=== PATIENT | female | born 1980 | race Caucasian/White ===

== ENCOUNTER 2020-02-24 16:53 | Outpatient (REF) | payer MEDICAID, SELFPAY ==
[2020-02-24 19:20] LABS: Abs Immature Grans 0.01 k/cumm (0.0-0.09); Absolute Basophil Count 0.03 k/cumm (0.0-0.2); Absolute Eosinophil Count 0.23 k/cumm (0.0-0.7); Absolute Lymphocyte Count 2.97 k/cumm (1.2-3.4); Absolute Monocyte Count 0.54 k/cumm (0.11-0.7); Absolute Neutrophil Count 4.46 k/cumm (1.2-6.7); Basophils % 0.4; Eosinophils % 2.8; HCT 37.3 % (36.0-46.0); HGB 12.5 g/dL (12.0-15.5); Immature Grans % 0.1 %; Mean Corp. HGB Concentration 33.5 g/dL (32.0-36.0); Mean Corpuscular Hemoglobin 27.7 pg (27.0-33.0); Mean Corpuscular Volume 82.7 fL (80-95); Mean Platelet Volume 11.4 fL (8.0-11.0); Monocytes % 6.6; Neutrophils % 54.1; Platelet Count 340 x1000/uL (130-400); RBC 4.51 m/cumm (4.00-5.20); RBC Distribution Width 14.1 % (11.7-14.6); White Blood Cell Count 8.24 k/cumm (4.4-10.8)
[2020-02-24 19:39] LABS: ALT 26 U/L (14-59); AST 16 U/L (15-37); Alkaline Phosphatase 76 U/L (46-116); Anion Gap 11.5 mmol/L (3-11); BUN 9 mg/dL (7-18); Bilirubin, Total 0.2 mg/dL (0.2-1.0); CO2 21.5 mmol/L (21.0-32.0); CREATININE 0.72 mg/dL (0.55-1.02); Calcium 8.6 mg/dL (8.5-10.1); Chloride 106 mmol/L (98-107); FREE T4 0.97 ng/dL (0.76-1.46); Glucose 110 mg/dL (74-106); Potassium 3.7 mmol/L (3.5-5.1); Sodium 139 mmol/L (136-145); TSH 2.18 uIU/mL (0.36-3.74); Total Protein 7.3 g/dL (6.4-8.2)
[2020-02-24 19:52] LABS: Vitamin D 25 Total 17.3 ng/ml (30-100)
[2020-02-25 17:00] LABS: T3, Total 129 ng/dL (97-169)
== END 2020-02-24 17:13 ==
LOC: NCHCN 16:53
PROVIDERS: PCP Physician Assistant; Visit Provider Physician Assistant
DX: E03.9 Hypothyroidism, unspecified (principal); E04.9 Nontoxic goiter, unspecified; G93.2 Benign intracranial hypertension; E55.9 Vitamin D deficiency, unspecified
CPT/HCPCS: 80053; 82306; 84439; 84443; 84480; 85025

== ENCOUNTER 2020-08-07 18:07 | Outpatient (REF) | payer MEDICAID, SELFPAY ==
[2020-08-08 21:31] LABS: COVID-19 RT-PCR Result NEGATIVE (Negative)
== END 2020-08-07 18:27 ==
LOC: NCHCN 18:07
PROVIDERS: PCP Physician Assistant; Visit Provider Physician Assistant
DX: Z20.828 Contact with and (suspected) exposure to other viral communicable diseases (principal)
CPT/HCPCS: U0003

== ENCOUNTER 2020-09-05 15:24 | Outpatient (REF) | payer MEDICAID, SELFPAY ==
[2020-09-05 15:52] LABS: ALT 21 U/L (14-59); AST 12 U/L (15-37); Albumin 3.8 g/dL (3.4-5.0); Alkaline Phosphatase 78 U/L (46-116); Anion Gap 9.7 mmol/L (3-11); BUN 8 mg/dL (7-18); Bilirubin, Total 0.3 mg/dL (0.2-1.0); CO2 27.3 mmol/L (21.0-32.0); CREATININE 0.6 mg/dL (0.55-1.02); Calcium 8.8 mg/dL (8.5-10.1); Chloride 104 mmol/L (98-107); FREE T4 0.78 ng/dL (0.76-1.46); Glucose 100 mg/dL (74-106); Potassium 3.4 mmol/L (3.5-5.1); Sodium 141 mmol/L (136-145); TSH 3.74 uIU/mL (0.36-3.74); Total Protein 6.9 g/dL (6.4-8.2)
[2020-09-06 17:16] LABS: T3, Total 114 ng/dL (97-169)
[2020-09-07 04:26] LABS: Vitamin D 25 Total 19.1 ng/ml (30-100)
== END 2020-09-05 15:25 | disposition home or self-care (01) ==
LOC: NCHCN 15:24
PROVIDERS: PCP Physician Assistant; Visit Provider Physician Assistant
DX: G93.2 Benign intracranial hypertension (principal); E55.9 Vitamin D deficiency, unspecified; E03.9 Hypothyroidism, unspecified
CPT/HCPCS: 80053; 82306; 84439; 84443; 84480

== ENCOUNTER 2021-03-15 13:45 | Outpatient (REF) | payer MEDICAID, SELFPAY | END 2021-03-15 13:46 | disposition home or self-care (01) | LOC: NCHCN 13:45 | PROVIDERS: PCP Physician Assistant; Visit Provider Physician Assistant | DX: N39.0 Urinary tract infection, site not specified (principal) | CPT/HCPCS: 87086 ==

== ENCOUNTER 2021-04-25 16:24 | Outpatient (REF) | payer MEDICAID, SELFPAY ==
[2021-04-27 10:56] LABS: COVID-19 RT-PCR UVMMC Result Negative (Negative)
== END 2021-04-25 16:25 | disposition home or self-care (01) ==
LOC: NCHCN 16:24
PROVIDERS: PCP Physician Assistant; Visit Provider Physician Assistant
DX: Z20.822 Contact with and (suspected) exposure to COVID-19 (principal); R05 Cough
CPT/HCPCS: U0003

== ENCOUNTER 2022-01-16 11:14 | Outpatient (REF) | payer MEDICAID, SELFPAY ==
[2022-01-16 21:29] LABS: Anion Gap 10.9 mmol/L (3-11); BUN 13 mg/dL (7-18); CO2 19.1 mmol/L (21.0-32.0); CREATININE 0.8 mg/dL (0.55-1.02); Chloride 110 mmol/L (98-107); Glucose 93 mg/dL (74-106); Potassium 3.9 mmol/L (3.5-5.1); Sodium 140 mmol/L (136-145)
[2022-01-17 17:23] LABS: TSH (W/Ref FT4) 0.82 uIU/mL (0.36-3.74)
[2022-01-17 17:36] LABS: Vitamin D 25 Total 21.1 ng/mL (30-100)
[2022-01-18 18:14] LABS: T3,Free 3.1 pg/mL (2.8-5.3)
== END 2022-01-16 11:15 | disposition home or self-care (01) ==
LOC: NCHCN 11:14
PROVIDERS: PCP Physician Assistant; Visit Provider Physician Assistant
DX: E55.9 Vitamin D deficiency, unspecified (principal); E06.3 Autoimmune thyroiditis; G93.2 Benign intracranial hypertension
CPT/HCPCS: 80048; 82306; 84443; 84481

== ENCOUNTER 2022-03-04 04:29 | Outpatient (RCR) | payer MEDICAID, SELFPAY ==
--- NOTE | 2022-03-04 08:15 | HOLTER_ITS ---
APPROVED REPORT Conclusion This is a 48-hour Holter monitor Predominant rhythm was sinus with an average heart rate of 88. Minimum was 61, maximum 148 There were very rare isolated atrial and ventricular premature contractions There was no atrial fibrillation, no supraventricular tachycardia, no high-grade AV block, no pauses greater than 3 seconds There were no apparent patient symptoms
== END 2022-04-03 23:59 | disposition home or self-care (01) ==
LOC: RT 04:29
PROVIDERS: PCP Physician Assistant; Visit Provider Physician Assistant
DX: R00.0 Tachycardia, unspecified (principal)
CPT/HCPCS: 93225; 93226

== ENCOUNTER 2022-05-28 08:11 | Outpatient (CLI) | payer MEDICAID, SELFPAY ==
--- NOTE | 2022-05-28 08:00 | RT.EKG_ITS ---
APPROVED REPORT Exam: Resting ECG Reason for Exam: palpitations Patient Location: O HR:87 bpm ECG Measurements Heart Rate 87 AXIS DC 153 P 18 QRSd 103 QRS -20 QT 368 T 24 QTc 443 Conclusion Sinus rhythm...normal P axis, V-rate 50- 99 RSR' in V1 or V2, probably normal variant...small R' only
== END 2022-05-28 08:12 | disposition home or self-care (01) ==
LOC: DI.CARD 08:12
PROVIDERS: PCP Physician Assistant; Visit Provider Internal Medicine Cardiovascular Disease
DX: R00.2 Palpitations (principal)
CPT/HCPCS: 93010

== ENCOUNTER 2022-12-02 15:57 | Outpatient (REF) | payer MEDICAID, SELFPAY ==
[2022-12-02 20:43] LABS: Hemoglobin A1C 5.6 % (<5.7)
[2022-12-02 21:34] LABS: Ferritin 29 ng/mL (8-252)
[2022-12-02 22:17] LABS: Iron 40 ug/dL (50-170); Total Iron Binding Capacity 371 ug/dL (250-450); Transferrin Sat 11 % (15-50)
== END 2022-12-02 15:58 | disposition home or self-care (01) ==
LOC: NCHCN 15:57
PROVIDERS: PCP Physician Assistant; Visit Provider Physician Assistant
DX: E61.1 Iron deficiency (principal); R79.89 Other specified abnormal findings of blood chemistry
CPT/HCPCS: 82728; 83036; 83540; 83550

== ENCOUNTER 2023-04-01 17:59 | Outpatient (REF) | payer MEDICAID, SELFPAY ==
[2023-04-01 18:50] LABS: HCT 38.7 % (36.0-46.0); HGB 12.8 g/dL (11.2-15.7); MCH 29.4 pg (27.0-33.0); MCHC 33.1 % (32.0-36.0); MCV 89 fL (80-95); MPV 11.5 fL (8.0-11.0); Platelet Count 340 10^3/uL (130-400); RBC 4.35 10^6/uL (3.93-5.22); RDW 12.9 % (11.7-14.6); RDW-SD 41.8 fL; WBC 9.31 10^3/uL (4.4-10.8)
[2023-04-01 19:34] LABS: Ferritin 76 ng/mL (8-252)
[2023-04-01 20:51] LABS: Iron 58 ug/dL (50-170); Total Iron Binding Capacity 330 ug/dL (250-450); Transferrin Sat 18 % (15-50)
== END 2023-04-01 18:00 | disposition home or self-care (01) ==
LOC: NCHCN 17:59
PROVIDERS: PCP Physician Assistant; Visit Provider Physician Assistant
DX: E61.1 Iron deficiency (principal); N92.6 Irregular menstruation, unspecified
CPT/HCPCS: 85027; 82728; 83001; 83540; 83550

== ENCOUNTER 2024-04-30 10:36 | Outpatient (REF) | payer MEDICAID, SELFPAY ==
[2024-04-30 19:16] LABS: ALT 22 U/L (14-59); AST 14 U/L (15-37); Alkaline Phosphatase 78 U/L (46-116); Anion Gap 8.3 mmol/L (3-11); BUN 9 mg/dL (7-18); Bilirubin, Total 0.38 mg/dL (0.2-1.0); CO2 24.7 mmol/L (21.0-32.0); CREATININE 0.6 mg/dL (0.55-1.02); Calcium 9.1 mg/dL (8.5-10.1); Chloride 106 mmol/L (98-107); Estimated GFR 112.04 (mL/min/1.73m2); Glucose 120 mg/dL (74-106); Potassium 4.1 mmol/L (3.5-5.1); Sodium 139 mmol/L (136-145); Total Protein 7.6 g/dL (6.4-8.2)
== END 2024-04-30 10:37 | disposition home or self-care (01) ==
LOC: NCHCN 10:36
PROVIDERS: PCP Physician Assistant; Visit Provider Physician Assistant
DX: I10 Essential (primary) hypertension (principal)
CPT/HCPCS: 80053

== ENCOUNTER 2024-07-30 11:30 | Outpatient (REF) | payer MEDICAID, SELFPAY ==
[2024-07-30 19:25] LABS: Abs Immature Grans 0.02 10^3/uL (0.0-0.06); Absolute Basophil Count 0.07 10^3/uL (0.0-0.2); Absolute Lymphocyte Count 2.19 10^3/uL (1.2-3.4); Absolute Monocyte Count 0.49 10^3/uL (0.1-0.8); Eosinophils % 2.8 %; HCT 39.3 % (36.0-46.0); HGB 13.3 g/dL (11.2-15.7); Immature Grans % 0.3 %; Lymphocytes % 30.1 %; MCH 30.1 pg (27.0-33.0); MCHC 33.8 % (32.0-36.0); MCV 89 fL (80-95); MPV 11.7 fL (8.0-11.0); Monocytes % 6.7 %; Neutrophils % 59.1 %; Platelet Count 267 10^3/uL (130-400); RBC 4.42 10^6/uL (3.93-5.22); RDW-SD 42.3 fL; WBC 7.27 10^3/uL (4.4-10.8)
[2024-07-30 19:47] LABS: Ferritin 94 ng/mL (8-252); Vitamin D 25 Total 19.1 ng/mL (30-100)
== END 2024-07-30 11:31 | disposition home or self-care (01) ==
LOC: NCHCN 11:30
PROVIDERS: PCP Physician Assistant; Visit Provider Physician Assistant
DX: E61.1 Iron deficiency (principal); E55.9 Vitamin D deficiency, unspecified
CPT/HCPCS: 82306; 82728; 85025

== ENCOUNTER 2024-10-28 22:02 | Outpatient (REF) | payer MEDICAID, SELFPAY ==
--- NOTE | 2024-10-28 08:40 | PAPFT_PTH ---
PATIENT: Barbie Ramírez LOC: [facility] U#:[id number] AGE/SX: 44/F ROOM: RE10/28/[address]: Gala Farr : 1980 BED: DIS: 10/28/2024 SPEC #: [id number] RECD: 10/29/24 13:07 STATUS: GRACIELA REMark #: [id number] MARK: 10/28/24 08:[address]: Gala Farr DEPT: [facility] Cytology RECD BY: Brandy Childress Tissues: 1 - CX/ENDOCX FOR PAP SMEARS Procedures: PAP THIN PREP/UVM Screening HPV DNA PROBE Comments: [id number] (CHLAMYDIA/GC)
[2024-10-28 19:37] LABS: Iron 61 ug/dL (50-170); Total Iron Binding Capacity 375 ug/dL (250-450); Transferrin Sat 16 % (15-50)
[2024-10-28 20:07] LABS: ALT 29 U/L (14-59); AST 16 U/L (15-37); Albumin 3.9 g/dL (3.4-5.0); Alkaline Phosphatase 69 U/L (46-116); Anion Gap 8.1 mmol/L (3-11); BUN 12 mg/dL (7-18); Bilirubin, Total 0.3 mg/dL (0.2-1.0); CO2 25.9 mmol/L (21.0-32.0); CREATININE 0.6 mg/dL (0.55-1.02); Calcium 9.1 mg/dL (8.5-10.1); Chloride 107 mmol/L (98-107); Estimated GFR 112.04 (mL/min/1.73m2); Ferritin 36 ng/mL (8-252); Glucose 108 mg/dL (74-106); Potassium 4.4 mmol/L (3.5-5.1); Sodium 141 mmol/L (136-145); TSH 15.83 uIU/mL (0.36-3.74); Total Protein 6.9 g/dL (6.4-8.2); Vitamin D 25 Total 13 ng/mL (30-100)
[2024-10-28 21:04] LABS: FREE T4 0.69 ng/dL (0.76-1.46)
[2024-10-29 22:36] LABS: T3, Total 131 ng/dL (97-169)
[2024-10-30 16:51] LABS: Bacterial Vaginosis (BV) Positive (Negative); Candida glabrata Negative (Negative); Candida species group Negative (Negative); Trichomonas vaginalis Negative (Negative)
[2024-10-31 09:43] LABS: HIV-1/2 Ag & Ab Screen Negative (Negative)
[2024-11-01 11:28] LABS: Hepatitis C Ab w Rflx HCV PCR Negative (Negative)
[2024-11-01 13:07] LABS: Chlamydia Result Negative (Negative); GC Result Negative (Negative)
== END 2024-10-28 22:03 | disposition home or self-care (01) ==
LOC: LBN 22:02
PROVIDERS: PCP Physician Assistant; Visit Provider Physician Assistant
DX: Z12.4 Encounter for screening for malignant neoplasm of cervix (principal); N76.0 Acute vaginitis; Z01.419 Encounter for gynecological examination (general) (routine) without abnormal findings; E55.9 Vitamin D deficiency, unspecified; E03.9 Hypothyroidism, unspecified; I10 Essential (primary) hypertension; E61.1 Iron deficiency; Z11.4 Encounter for screening for human immunodeficiency virus [HIV]; Z11.59 Encounter for screening for other viral diseases; R10.2 Pelvic and perineal pain
CPT/HCPCS: 80053; 81513; 82306; 86803; 87389; 87481; 87491; 87591; 87661; 88142; 82728; 83540; 83550; 84439; 84443; 84480; 87624

== ENCOUNTER 2024-11-29 09:58 | Outpatient (REF) | payer MEDICAID, SELFPAY ==
[2024-11-29 19:58] LABS: TSH 4.05 uIU/mL (0.36-3.74); Vitamin D 25 Total 13 ng/mL (30-100)
[2024-11-29 20:18] LABS: FREE T4 0.86 ng/dL (0.76-1.46)
[2024-11-30 18:32] LABS: Parathyroid Hormone,Intact 50 pg/mL (19-88)
== END 2024-11-29 09:59 | disposition home or self-care (01) ==
LOC: NCHCN 09:58
PROVIDERS: PCP Physician Assistant; Visit Provider Physician Assistant
DX: E55.9 Vitamin D deficiency, unspecified (principal); E03.9 Hypothyroidism, unspecified
CPT/HCPCS: 82306; 83970; 84439; 84443

== ENCOUNTER 2024-12-21 18:26 | Outpatient (REF) | payer MEDICAID, SELFPAY ==
[2024-12-21 19:29] LABS: Abs Immature Grans 0.02 10^3/uL (0.0-0.06); Absolute Basophil Count 0.06 10^3/uL (0.0-0.2); Absolute Eosinophil Count 0.24 10^3/uL (0.0-0.7); Absolute Lymphocyte Count 2.74 10^3/uL (1.2-3.4); Absolute Monocyte Count 0.59 10^3/uL (0.1-0.8); Absolute Neutrophil Count 4.69 10^3/uL (1.2-6.7); Basophils % 0.7 %; Eosinophils % 2.9 %; HCT 39.2 % (36.0-46.0); HGB 12.9 g/dL (11.2-15.7); Immature Grans % 0.2 %; Lymphocytes % 32.9 %; MCH 28.7 pg (27.0-33.0); MCHC 32.9 % (32.0-36.0); MCV 87 fL (80-95); MPV 11.2 fL (8.0-11.0); Monocytes % 7.1 %; Neutrophils % 56.2 %; Platelet Count 321 10^3/uL (130-400); RBC 4.49 10^6/uL (3.93-5.22); RDW 12.6 % (11.7-14.6); RDW-SD 40.1 fL; WBC 8.34 10^3/uL (4.4-10.8)
[2024-12-21 19:53] LABS: Ferritin 22 ng/mL (8-252)
== END 2024-12-21 18:27 | disposition home or self-care (01) ==
LOC: NCHCN 18:26
PROVIDERS: PCP Physician Assistant; Visit Provider Physician Assistant
DX: E61.1 Iron deficiency (principal)
CPT/HCPCS: 82728; 85025

== ENCOUNTER 2025-01-25 16:31 | Outpatient (REF) | payer MEDICAID, SELFPAY ==
[2025-01-25 18:47] LABS: Abs Immature Grans 0.02 10^3/uL (0.0-0.06); Absolute Basophil Count 0.07 10^3/uL (0.0-0.2); Absolute Eosinophil Count 0.23 10^3/uL (0.0-0.7); Absolute Lymphocyte Count 2.47 10^3/uL (1.2-3.4); Absolute Monocyte Count 0.52 10^3/uL (0.1-0.8); Absolute Neutrophil Count 4.86 10^3/uL (1.2-6.7); Basophils % 0.9 %; Eosinophils % 2.8 %; HCT 36.1 % (36.0-46.0); HGB 11.6 g/dL (11.2-15.7); Immature Grans % 0.2 %; Lymphocytes % 30.2 %; MCH 27.8 pg (27.0-33.0); MCHC 32.1 % (32.0-36.0); MCV 86 fL (80-95); MPV 11.2 fL (8.0-11.0); Monocytes % 6.4 %; Neutrophils % 59.5 %; Platelet Count 300 10^3/uL (130-400); RBC 4.18 10^6/uL (3.93-5.22); RDW 12.9 % (11.7-14.6); RDW-SD 40.3 fL; WBC 8.17 10^3/uL (4.4-10.8)
[2025-01-25 19:07] LABS: Iron 42 ug/dL (50-170); Total Iron Binding Capacity 449 ug/dL (250-450); Transferrin Sat 9 % (15-50)
[2025-01-25 19:27] LABS: Ferritin 12 ng/mL (8-252); TSH (W/Ref FT4) 9.95 uIU/mL (0.36-3.74); Vitamin D 25 Total 10 ng/mL (30-100)
[2025-01-25 19:45] LABS: FREE T4 0.77 ng/dL (0.76-1.46)
== END 2025-01-25 16:32 | disposition home or self-care (01) ==
LOC: NCHCN 16:31
PROVIDERS: PCP Physician Assistant; Visit Provider Physician Assistant
DX: E61.1 Iron deficiency (principal); E03.9 Hypothyroidism, unspecified; E55.9 Vitamin D deficiency, unspecified
CPT/HCPCS: 82306; 82728; 83540; 83550; 84439; 84443; 85025

== ENCOUNTER 2025-04-28 17:18 | Outpatient (REF) | payer MEDICAID, SELFPAY ==
[2025-04-28 20:08] LABS: Iron 61 ug/dL (50-170); Total Iron Binding Capacity 407 ug/dL (250-450); Transferrin Sat 15 % (15-50)
[2025-04-28 20:33] LABS: Ferritin 50 ng/mL (8-252); Vitamin D 25 Total 11 ng/mL (30-100)
== END 2025-04-28 17:19 | disposition home or self-care (01) ==
LOC: NCHCN 17:18
PROVIDERS: PCP Physician Assistant; Visit Provider Physician Assistant
DX: E61.1 Iron deficiency (principal); E55.9 Vitamin D deficiency, unspecified
CPT/HCPCS: 82306; 82728; 83540; 83550

== ENCOUNTER 2025-06-22 06:46 | Emergency (ER) | payer MEDICAID, SELFPAY ==
[2025-06-22 06:47] VITALS: BP 159/90; PULSE 98; RESP 16; TEMP 36.7; O2SAT 99
[2025-06-22 06:50] VITALS: BP 159/90; PULSE 98; RESP 16; TEMP 36.7; O2SAT 99
--- NOTE | 2025-06-22 07:31 | W.ED.GENAD ---
Discharge Plan Disposition Patient Disposition: Home Condition: Good Discharge Details Clinical Impression: Acute sore throat Primary Care Provider: Gala Farr ED Provider: Elder Reis Home Meds and New Rx's Prescriptions: No Action iron infusion IV [id number] rosuvastatin 10 mg tablet 10 mg PO DAILY mecobalamin (vitamin B12) 1,000 mcg tablet,chewable 1,000 mcg PO DAILY levothyroxine 88 mcg capsule 88 mcg PO DAILY tizanidine 4 mg capsule 4 mg PO QHS PRN aspirin 81 mg capsule 81 mg PO DAILY ibuprofen 600 mg tablet 600 mg PO BID PRN fluticasone propionate [Flovent HFA] 220 mcg/actuation HFA aerosol inhaler 2 puff inhalation BID diclofenac sodium [Arthritis Pain (diclofenac)] 1 % gel 2 g topical QID PRN Rx Instructions: apply to single elbow, wrist or hand; for hand includes palm/fingers/back of hand albuterol sulfate [Ventolin HFA] 90 mcg/actuation HFA aerosol inhaler 2 puff inhalation Q6H PRN lorazepam 1 mg tablet 1 mg PO BID PRN levocetirizine [Allergy Relief (levocetirizin)] 5 mg tablet 5 mg PO DAILY cholecalciferol (vitamin D3) 50 mcg (2,000 unit) capsule 50 mcg PO DAILY rimegepant 75 mg tablet,disintegrating 75 mg PO ONCE PRN Rx Instructions: as a single dose dexlansoprazole [Dexilant] 60 mg capsule,biphase delayed releas 60 mg PO DAILY ergocalciferol (vitamin D2) 1,250 mcg (50,000 unit) capsule 1,250 mcg PO Q2W Discharge Instructions Instructions: Sore throat in adults Additional Instructions: At this time the test looking for strep throat has returned negative x 2. We have sent these for culture though, and we will contact you if the culture results returned positive. In the meantime the assumption with us be that this would be a viral etiology. Please continue to take Tylenol and Motrin [id number] as needed for pain and inflammation. Please gargle salt water 2-3 times per day, and take 2 tablespoons of honey every 4-6 hours to help with the sore throat. If you notice any worsening of your symptoms, or any new symptoms such as vomiting, diarrhea, fever, chills, shortness of breath, chest pain, numbness, weakness, or fainting , please return immediately to the emergency department for reevaluation. Please follow up with your primary care provider as soon as possible for reassessment and reevaluation. As always, it was a pleasure participating in your medical care today. Stand Alone Forms: Portal Information Referrals: Gala Farr [Primary Care Provider, Medicine] [facility] General Date/Time Provider Initiated Documentation: 06/22/25 07:08. HPI Narrative: This is a 45-year-old female with no significant past medical history who presents today for sore throat. Patient states that about 4 to 5 days ago she developed a sore throat, she had fever for about 24 to 48 hours, the fever has resolved, but she still has a persistent sore throat. Slightly improved compared to prior but otherwise still persistent. She noticed some white splotches over the last 24 hours, and came in for further assessment. She does admit to sick contacts with similar symptomatology, 1 of which was diagnosed with strep throat. She denies any history of STDs, she is in a monogamous relationship, she does admit to performing oral sex with her partner but also states that he has no lesions, history of herpes, and in fact has been tested recently all of which was negative. She denies any other complaints at this time. She has been taking NSAIDs which has improved her symptoms some, as well as some salt water gargles. Related Data Home Medications Medication Instructions Recorded Confirmed albuterol sulfate 90 mcg/actuation 2 puff inhalation Q6H PRN 02/26/22 06/22/25 aerosol inhaler (Ventolin HFA) aspirin 81 mg capsule 81 mg PO DAILY 02/26/22 06/22/25 cholecalciferol (vitamin D3) 50 50 mcg PO DAILY 02/26/22 06/22/25 mcg (2,000 unit) capsule diclofenac sodium 1 % topical gel 2 g topical QID PRN 02/26/22 06/22/25 (Arthritis Pain (diclofenac)) fluticasone propionate 220 2 puff inhalation BID 02/26/22 06/22/25 mcg/actuation HFA aerosol inhaler (Flovent HFA) ibuprofen 600 mg tablet 600 mg PO BID PRN 02/26/22 06/22/25 levocetirizine 5 mg tablet 5 mg PO DAILY 02/26/22 06/22/25 (Allergy Relief (levocetirizine)) levothyroxine 88 mcg capsule 88 mcg PO DAILY 02/26/22 06/22/25 lorazepam 1 mg tablet 1 mg PO BID PRN 02/26/22 06/22/25 tizanidine 4 mg capsule 4 mg PO QHS PRN 02/26/22 06/22/25 dexlansoprazole 60 mg 60 mg PO DAILY 09/17/22 06/22/25 capsule,biphase delayed release (Dexilant) rimegepant 75 mg disintegrating 75 mg PO ONCE PRN 09/17/22 06/22/25 tablet ergocalciferol (vitamin D2) 1,250 1,250 mcg PO Q2W 05/27/23 06/22/25 mcg (50,000 unit) capsule iron infusion IV [id number] 05/27/23 mecobalamin (vitamin B12) 1,000 1,000 mcg PO DAILY 05/27/23 06/22/25 mcg chewable tablet rosuvastatin 10 mg tablet 10 mg PO DAILY 05/27/23 06/22/25 Allergies Allergy/AdvReac Type Severity Reaction Status Date / Time hydroxyzine Allergy Intermediate Skin Rash Verified 06/22/25 06:53 gabapentin Allergy Mild Other (See Verified 06/22/25 06:53 Comment) cetirizine AdvReac Mild Unknown Verified 06/22/25 06:53 duloxetine (From Cymbalta) AdvReac Mild Other (See Verified 06/22/25 06:53 Comment) fexofenadine (From Margarita) AdvReac Mild Other (See Verified 06/22/25 06:53 Comment) loratadine (From Claritin) AdvReac Mild Other (See Verified 06/22/25 06:53 Comment) General Stated Complaint: Sorethroat BECKY: 4 Exam Narrative Exam Narrative: 1.Const: Well-nourished, Well-developed, appearing stated age 2.Eyes: PERRL, no conjunctival injection, and symmetrical lids. 3.ENT: Atraumatic external nose and ears. Moist MM. Neck: Symmetric, trachea midline, No thyromegaly. Minimal erythema in the posterior oropharynx. Mild white exudate noted on the right tonsil and a very small amount noted on the left tonsil. No tonsillar enlargement though. No signs of peritonsillar abscess. Uvula midline. No signs of compromise of the posterior oropharynx. No difficulty breathing or controlling secretions. No evidence of Ludewig's angina. 4.CVS: +S1/S2, Peripheral pulses 2+ and equal in all extremities. Brisk capillary refill in all extremities. 5.RESP: Unlabored respiratory effort. Clear to auscultation bilaterally. No wheezes rales or rhonchi 6.GI: Soft, Nontender/Nondistended, No hepatosplenomegaly. No guarding or rebound. 7.MSK: Normocephalic/Atraumatic, Extremities w/o deformity or ttp No cyanosis or clubbing, Normal movement of all extremities 8.Skin: Warm, Dry. No rashes or lesions. 9.Neuro: financial agent II-XII grossly intact. Sensation grossly intact, no focal neurologic deficits. 10.Psych: (AAO) x3. Appropriate mood and affect Course Vital Signs Vital signs: Vital Signs Temperature 36.7 C 06/22/25 06:47 Pulse 98 H 06/22/25 06:47 Respiratory Rate 16 06/22/25 06:47 Blood Pressure 159/90 H 06/22/25 06:47 Pulse Oximetry 99 06/22/25 06:47 Temperature 36.7 C 06/22/25 06:50 Temperature Source Temporal Artery Scan 06/22/25 06:50 Pulse 98 H 06/22/25 06:50 Respiratory Rate 16 06/22/25 06:50 Blood Pressure 159/90 H 06/22/25 06:50 Blood Pressure Position Sitting 06/22/25 06:50 Pulse Oximetry 99 06/22/25 06:50 Oxygen Delivery Method Room Air 06/22/25 06:50 Oxygen Flow Rate 0 06/22/25 06:50 Pain Level 6 06/22/25 06:50 Lab/Test Results Lab/Test Results: 06/22/25 06:50 Tonsil - Not Specified Group A Streptococcus Culture - Pending POC Strep Test-NANCY(Rapid) Start: 06/22/25 07:07 Freq: .Rapid Strep Test Status: Active Protocol: Document 06/22/25 07:08 VANDANA (Rec: 06/22/25 07:08 VANDANA [id number]) Strep test-NANCY(Rapid)-POC POC-Strep test-NANCY ( Negative Rapid) POC-Strep test-NANCY (Rapid) Negative Medical Decision Making This is a 45-year-old female with no significant past medical history who presents today for sore throat. Patient states that about 4 to 5 days ago she developed a sore throat, she had fever for about 24 to 48 hours, the fever has resolved, but she still has a persistent sore throat. Slightly improved compared to prior but otherwise still persistent. She noticed some white splotches over the last 24 hours, and came in for further assessment. She does admit to sick contacts with similar symptomatology, 1 of which was diagnosed with strep throat. She denies any history of STDs, she is in a monogamous relationship, she does admit to performing oral sex with her partner but also states that he has no lesions, history of herpes, and in fact has been tested recently all of which was negative. She denies any other complaints at this time. She has been taking NSAIDs which has improved her symptoms some, as well as some salt water gargles. Physical exam demonstrates minimal erythema in the posterior oropharynx. Mild white exudate noted on the right tonsil and a very small amount noted on the left tonsil. No tonsillar enlargement though. No signs of peritonsillar abscess. Uvula midline. No signs of compromise of the posterior oropharynx. No difficulty breathing or controlling secretions. No evidence of Ludewig's angina. Patient was strep tested by nursing staff, and then a second time by myself. Both of which returned negative for strep. We will send for cultures. No evidence at this time to suggest herpetic necrotizing tonsillitis, peritonsillar abscess, or airway compromise. Will recommend conservative therapy until the cultures return. Recommend 2 tablespoons of honey every 6 hours, continued salt water gargles, and NSAID use. Discussed red flags for which to return. I have extensively reviewed the treatment plan and discharge instructions with the patient. I have addressed all patient concerns at this time. The patient was made aware of what symptoms to monitor for that would warrant a return to the emergency department. Discussed the plan with the patient, they demonstrate verbal understanding and agreement with our assessment and plan at this time. The documentation in this chart was dictated using [employer] dictation software. Please excuse any dictation errors. PFSH All Active Problems (Updated 06/22/25 @ 07:32 by Elder R Smiley, DO) Acute sore throat (Acute) Chronic headaches (Acute) Vitamin D deficiency (Acute) Anxiety (Chronic) Right carpal tunnel syndrome (Acute) Left carpal tunnel syndrome (Acute) Cubital tunnel syndrome on left (Acute) Medical History delivery delivered Syncope Head injury Fatigue Nicotine dependence Hypothyroidism Anxiety Recurrent major depression Vitamin D deficiency Chronic female pelvic pain Allergic rhinitis Autoimmune thyroiditis Empty sella syndrome Goiter Intracranial hypertension GERD (gastroesophageal reflux disease) Dysphagia Herniated cervical disc Hyperglycemia Radiculopathy affecting upper extremity Chronic right shoulder pain Plantar fasciitis Thalamic infarction Lumbar disc herniation Chronic low back pain PFO (patent foramen ovale) Visual changes Raynauds disease Family history of cervical cancer COVID-19 Tachycardia Atypical chest pain Family history of ovarian cancer Hand tingling Family history of Mckeon syndrome Surgical History S/P patent foramen ovale [place] [facility] [place]/O endoscopy H/O tubal ligation Family History Mother COPD (chronic obstructive pulmonary disease) Hypertension Diabetes Cancer Father Diabetes Hypertension SELINA (obstructive sleep apnea) Epilepsy Hyperlipidemia COPD (chronic obstructive pulmonary disease) Depression H/O autistic disorder Son H/O autistic disorder ADHD Maternal Aunt Cancer Maternal Grandmother Cancer Social History Smoking/Tobacco Use Status: Never Smoking risk assessment performed?: Yes Alcohol Intake: never Drug use: Never Substance use type: does not use
== END 2025-06-22 07:41 | disposition home or self-care (01) ==
LOC: ER 07:40
PROVIDERS: Emergency Provider Student in an Organized Health Care Education/Training Program; PCP Physician Assistant
DX: J02.9 Acute pharyngitis, unspecified (principal)
CPT/HCPCS: 99283; 87081